=== PATIENT | male | born 1945 | race Asian ===

== ENCOUNTER 2021-12-27 00:06 | Inpatient (IN) | payer MEDICAID, MEDICARE ==
[2021-12-27] VITALS (20 sets, daily range): BP systolic 86–136
[~2021-12-27] VITALS: Ht 170.2 cm; Wt 46.3 kg
[2021-12-27] MEDS ORDERED: NACL 0.9% 1,000 ML IV ONE ×3 (00:45→04:45)
[2021-12-27] MEDS ORDERED: NOREPINEPHRINE BITARTRATE 4 MG in NS 246 ML IV ONE (00:45)
[2021-12-27] MEDS ORDERED: CEFEPIME 2 GM in D5W 100 ML IV ONE (00:45)
[2021-12-27] MEDS ORDERED: NOREPINEPHRINE BITARTRATE 8 MG in NS 242 ML IV ONE (00:45)
[2021-12-27] MEDS ORDERED: AZITHROMYCIN 500 MG in NS 250 ML IV ONE (00:45)
[2021-12-27] MEDS ORDERED: VANCOMYCIN HCL 1,000 MG in NS 250 ML IV ONE (00:45)
[2021-12-27] MEDS ORDERED: TYLL650 PO (00:52)
[2021-12-27] MEDS ORDERED: MIDO10TA PO (00:52)
[2021-12-27] MEDS ORDERED: ZINC50TA69 PO (00:52)
[2021-12-27] MEDS ORDERED: DIGO125T PO (00:52)
[2021-12-27] MEDS ORDERED: CHLO237L21 TP (00:52)
[2021-12-27] MEDS ORDERED: MULT-955 PO (00:52)
[2021-12-27] MEDS ORDERED: ALBMDI INH (00:52)
[2021-12-27] MEDS ORDERED: DOCU-144 PO (00:52)
[2021-12-27] MEDS ORDERED: FERR220S6 PO (00:52)
[2021-12-27] MEDS ORDERED: AMIO200T66 PO (00:52)
[2021-12-27] MEDS ORDERED: ASCO500T20 PO (00:52)
[2021-12-27] MEDS ORDERED: HYDR-3917 PO (00:52)
[2021-12-27] MEDS ORDERED: METO25TA6 PO (00:52)
[2021-12-27] MEDS ORDERED: TIGE50VI6 IV (00:52)
[2021-12-27] MEDS ORDERED: VANCOMYCIN HCL 1000 MG/VIAL IV ONE (01:21)
[2021-12-27] MEDS ORDERED: CEFEPIME 1 GM/VIAL (MAXIPIME) ONE (01:21)
[2021-12-27] MEDS ORDERED: AZITHROMYCIN 500 MG/VIAL (ZITHROMAX) IV ONE (01:22)
[2021-12-27 01:57] LABS: MEAN CORPUSCULAR HEMOGLOBIN 25 pg (27-31); MEAN CORPUSCULAR HGB CONC 30 % (32-36); MEAN CORPUSCULAR VOLUME 82 fL (79.0-98.0); PLATELET COUNT (AUTO) 105 K/uL (130-430); RED BLOOD CELL COUNT(AUTO) 2.58 MIL/uL (4.2-6.2)
[2021-12-27 02:16] LABS: CALCIUM 8.4 mg/dL (8.4-11.0); CHLORIDE 117 mmol/L (98-107)
[2021-12-27 02:17] LABS: HEMATOCRIT 21.3 % (36-54); HEMOGLOBIN 6.4 g/dL (14.0-18.0); WHITE BLOOD COUNT (AUTO) 73.9 K/uL (4.8-10.8)
[2021-12-27 02:25] LABS: ALANINE AMINOTRANSFERASE 21 U/L (12-78); ASPARTATE AMINOTRANSFERASE 41 U/L (10-37)
[2021-12-27 02:49] LABS: ANION GAP 11 (5-15); GLUCOSE 95 mg/dL (70-99); POTASSIUM 7.1 mmol/L (3.5-5.1); SODIUM SERUM 150 mmol/L (136-145); UREA NITROGEN, BLOOD 98 mg/dL (8-21)
[2021-12-27 02:50] LABS: ALBUMIN 1.7 g/dL (3.4-4.8); TOTAL BILIRUBIN 1.1 mg/dL (0.0-1.0)
[2021-12-27] MEDS ORDERED: DEXTROSE 50% JECT 50 ML DISP.SYRIN IVP ONE ×2 (03:00→10:00)
[2021-12-27] MEDS: SODIUM POLYSTYRENE SULFONATE 15 GM/60 ML UDBTL RC ONE ×2 (03:00→03:40)
[2021-12-27] MEDS ORDERED: SODIUM BICARBONATE 0.5 MEQ/ML VIAL INJ ONE (03:00)
[2021-12-27] MEDS ORDERED: INSULIN REGULAR, HUMAN 10 UNITS/0.1 ML INJ IVP ONE (03:00)
[2021-12-27] MEDS ORDERED: CALCIUM GLUCONATE 1 GM/10 ML VIAL IVP ONE (03:00)
[2021-12-27] MEDS ORDERED: ALBUTEROL SULFATE 0.083% 2.5 MG/3 ML VIAL.NEB INH ONE ×2 (03:00→03:10)
[2021-12-27] MEDS ORDERED: CALCIUM GLUCONATE 1 GM/10 ML VIAL ONE (03:08)
[2021-12-27] MEDS ORDERED: PANTOPRAZOLE SODIUM 40 MG/VIAL (PROTONIX) IVP ONE ×2 (03:15→04:30)
[2021-12-27] MEDS ORDERED: SODIUM BICARBONATE 8.4% JECT 50 MEQ/50 ML SYRINGE ONE ×2 (03:17→03:45)
[2021-12-27] MEDS ORDERED: DEXTROSE 50% JECT 50 ML DISP.SYRIN ONE ×2 (03:21→03:53)
[2021-12-27] MEDS: JECT IVP SCH ×4 (03:31→05:15)
[2021-12-27] MEDS: SODIUM BICARBONATE 8.4% IVP SCH ×4 (03:31→05:15)
[2021-12-27] MEDS: D5W IVP SCH ×4 (03:31→05:15)
[2021-12-27 04:03] LABS: NEUTROPHILS % (AUTO) 83.2 % (40.0-70.0)
[2021-12-27 04:04] LABS: BASOPHILS % (AUTO) 0.2 % (0.0-2.0); LYMPHOCYTES # (AUTO) 0.9 K/uL (1.0-5.5); LYMPHOCYTES % (AUTO) 1.2 % (20.5-51.5); MONOCYTES % (AUTO) 15.4 % (1.7-9.3); NEUTROPHILS # (AUTO) 61.4 K/uL (1.8-7.7)
[2021-12-27 04:05] LABS: BASOPHILS # (AUTO) 0.1 K/uL (0.0-0.2); BASOPHILS % (MANUAL) 0 % (0-2); EOSINOPHILS % (MANUAL) 0 % (0-7); LYMPHOCYTES % (MANUAL) 2 % (20-46); MONOCYTES # (AUTO) 11.4 K/uL (0.0-1.0); MONOCYTES % (MANUAL) 13 % (0-11)
[2021-12-27 04:41] LABS: INR 1.5 (0.80-1.20); PROTHROMBIN TIME 15.7 SECS (9.5-12.5)
[2021-12-27] MEDS ORDERED: NOREPINEPHRINE 4 MG/4 ML VIAL IV ONE (05:22)
[2021-12-27] MEDS ORDERED: DEXTROSE 50% JECT 50 ML DISP.SYRIN IVP PRN (06:00)
[2021-12-27] MEDS ORDERED: INSULIN REGULAR, HUMAN 100 UNITS/ML, 10 ML VIAL (humuLIN R) SUBCUT PRN (06:00)
[2021-12-27] MEDS ORDERED: NOREPINEPHRINE BITARTRATE 8 MG in NS 242 ML IV PRN (06:00)
[2021-12-27 06:50] LABS: SODIUM SERUM 154 mmol/L (136-145)
[2021-12-27] MEDS ORDERED: NOREPINEPHRINE BITARTRATE 16 MG in NS 234 ML IV PRN (07:30)
[2021-12-27 08:08] LABS: HEMOGLOBIN 9.4 g/dL (14.0-18.0); MEAN CORPUSCULAR HEMOGLOBIN 26 pg (27-31); MEAN CORPUSCULAR HGB CONC 30 % (32-36); MEAN CORPUSCULAR VOLUME 86 fL (79.0-98.0); PLATELET COUNT (AUTO) 114 K/uL (130-430); RED BLOOD CELL COUNT(AUTO) 3.59 MIL/uL (4.2-6.2); RED CELL DISTRIBUTION WIDTH 20.8 % (9.0-15.0)
[2021-12-27 08:19] LABS: ANION GAP 21 (5-15); CALCIUM 8.2 mg/dL (8.4-11.0); CHLORIDE 115 mmol/L (98-107); CREATININE 1.91 mg/dL (0.55-1.30); GLUCOSE 215 mg/dL (70-99); UREA NITROGEN, BLOOD 93 mg/dL (8-21)
[2021-12-27 08:25] LABS: POTASSIUM 6.3 mmol/L (3.5-5.1)
[2021-12-27] MEDS ORDERED: LINEZOLID 300 ML IV SCH (09:00)
[2021-12-27] MEDS ORDERED: INSULIN REGULAR, HUMAN 100 UNITS/ML, 10 ML VIAL IVP ONE (10:00)
[2021-12-27] MEDS ORDERED: CALCIUM CHLORIDE 1 GM/10 ML DISP.SYRIN (14 mEq Ca++/SYR) IVP ONE (10:00)
[2021-12-27] MEDS ORDERED: VASOPRESSIN 40 UNITS in NS 38 ML IV PRN ×4 (10:00)
[2021-12-27] MEDS ORDERED: MIDAZOLAM IN NACL,ISO-OSMOT/PF 100 ML IV PRN (10:00)
[2021-12-27] MEDS: PANTOPRAZOLE SODIUM 40 MG in NS 50 ML IV SCH ×2 (11:39→16:00)
[2021-12-27] MEDS: NOREPINEPHRINE BITARTRATE 16 MG in D5W 234 ML IV PRN ×2 (11:42→18:15)
[2021-12-27] MEDS ORDERED: FLUCONAZOLE 100 mg/ NS 50 ML IV SCH (12:00)
[2021-12-27] MEDS ORDERED: SODIUM BICARBONATE 8.4% JECT 50 MEQ/50 ML SYRINGE IVP ONE (12:15)
[2021-12-27] MEDS: PIPERACILLIN/TAZO 2.25G/DEX-IS 50 ML IV SCH ×2 (12:49→18:12)
[2021-12-27] MEDS ORDERED: SODIUM BICARBONATE 8.4% JECT 100 MEQ in 0.45% NACL 1,000 ML IVP SCH (13:00)
[2021-12-27] MEDS ORDERED: metroNIDAZOLE 500 mg/NS 100 ML IV SCH (14:00)
[2021-12-27 14:24] LABS: ATYPICAL LYMPHOCYTES % 7 % (0-0); BAND % (MANUAL) 25 % (0-6); LYMPHOCYTES % (MANUAL) 0 % (20-46)
[2021-12-27 14:25] LABS: BASOPHILS % (MANUAL) 0 % (0-2); EOSINOPHILS % (MANUAL) 0 % (0-7); METAMYELOCYTES % 4 % (0-0); MONOCYTES % (MANUAL) 4 % (0-11); MYELOCYTES % 3 % (0-0)
[2021-12-27] MEDS: ALBUMIN HUMAN 25% 100 ML IV PRN ×2 (16:52→18:12)
[2021-12-27] MEDS ORDERED: DOPamine PREMIX 250 ML IV PRN (17:30)
[2021-12-27] MEDS ORDERED: NACL 0.9% 2,000 ML IV ONE (17:30)
[2021-12-27 18:00] LABS: ALANINE AMINOTRANSFERASE 443 U/L (12-78); ALBUMIN 1.3 g/dL (3.4-4.8); ANION GAP 24 (5-15); ASPARTATE AMINOTRANSFERASE 1253 U/L (10-37); CALCIUM 8.4 mg/dL (8.4-11.0); CHLORIDE 116 mmol/L (98-107); CREATININE 1.89 mg/dL (0.55-1.30); GLUCOSE 115 mg/dL (70-99); PHOSPHORUS 9.8 mg/dL (2.7-4.5); SODIUM SERUM 155 mmol/L (136-145); TOTAL BILIRUBIN 1.4 mg/dL (0.0-1.0); UREA NITROGEN, BLOOD 94 mg/dL (8-21)
[2021-12-27 19:46] LABS: POTASSIUM 6.3 mmol/L (3.5-5.1)
[2021-12-27] MEDS ORDERED: CEFEPIME 1 GM in D5W 50 ML IV SCH (22:00)
== END 2021-12-27 19:15 | DRG 720 ==
LOC: SED 00:06 → SIC 04:40
PROVIDERS: ADMIT Internal Medicine; ATTEND Internal Medicine
PROC: 5A12012 Performance of Cardiac Output, Single, Manual (ICD-10-PCS; principal; 2021-12-27)
PROC: 5A1935Z Respiratory Ventilation, Less than 24 Consecutive Hours (ICD-10-PCS; 2021-12-27)
PROC: 30233N1 Transfusion of Nonautologous Red Blood Cells into Peripheral Vein, Percutaneous Approach (ICD-10-PCS; 2021-12-27)
DX: A41.9 Sepsis, unspecified organism (principal); J96.21 Acute and chronic respiratory failure with hypoxia; N17.0 Acute kidney failure with tubular necrosis; I46.9 Cardiac arrest, cause unspecified; R65.21 Severe sepsis with septic shock; K55.9 Vascular disorder of intestine, unspecified; E43 Unspecified severe protein-calorie malnutrition; G82.50 Quadriplegia, unspecified; K65.9 Peritonitis, unspecified; Z99.11 Dependence on respirator [ventilator] status; Z93.0 Tracheostomy status; D62 Acute posthemorrhagic anemia; K40.30 Unilateral inguinal hernia, with obstruction, without gangrene, not specified as recurrent; D68.9 Coagulation defect, unspecified; I48.91 Unspecified atrial fibrillation; G40.909 Epilepsy, unspecified, not intractable, without status epilepticus; Z20.822 Contact with and (suspected) exposure to COVID-19; E87.5 Hyperkalemia; R13.10 Dysphagia, unspecified; J18.9 Pneumonia, unspecified organism; J44.0 Chronic obstructive pulmonary disease with (acute) lower respiratory infection; I10 Essential (primary) hypertension; E11.9 Type 2 diabetes mellitus without complications; Z87.440 Personal history of urinary (tract) infections; Z86.73 Personal history of transient ischemic attack (TIA), and cerebral infarction without residual deficits; Z79.1 Long term (current) use of non-steroidal anti-inflammatories (NSAID); Z79.899 Other long term (current) drug therapy; Z93.1 Gastrostomy status; Z68.1 Body mass index [BMI] 19.9 or less, adult
CPT/HCPCS: 36415; 36430; 36600; 71045; 71250-TC; 76376; 80048; 80053; 80162; 82272; 82803-TC; 82962; 83605; 83735; 84100; 84484; 85007; 85027; 85610-TC; 85730-TC; 86886; 86900; 86901; 86920; 87040; 87070-TC; 87081; 87205-TC; 92950; 93005; 94002; 94640; 96374; 96375; 96376; 99291; C9113; J0456; J0610; J0692; J1265; J1450; J1815; J2020; J2543; J3370; J3490; J7050; J7060; J7613; P9021